=== PATIENT | male | born 1985 | race Caucasian/White ===

== ENCOUNTER 2018-12-16 15:54 | Emergency (ER) | payer BC, SELFPAY ==
[2018-12-16 15:57] VITALS: BP 162/102; PULSE 93; RESP 16; TEMP 36.6
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
[2018-12-16] MEDS: Ibuprofen 600 MG TAB PO (17:12)
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
--- NOTE | 2018-12-16 17:24 | DI.VRAD_ITS ---
EXAM: XR Right Clavicle, Complete EXAM DATE/TIME: 12/16/2018 4:13 PM CLINICAL HISTORY: 33 years old, male; Pain; Shoulder; Right TECHNIQUE: Imaging protocol: XR Right clavicle complete. Any number of views. COMPARISON: CR XR ribs RT w PA lat chest 12/16/2018 4:49 PM FINDINGS: Bones/joints: Normal. No fracture or dislocation. Soft tissues: Normal. IMPRESSION: No acute findings. Dictated and Authenticated by: Cyrus Slater MD. Ordering:TIAGO Ornelas MD
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
--- NOTE | 2018-12-16 17:27 | DI.VRAD_ITS ---
EXAM: XR Chest, 2 Views EXAM DATE/TIME: 12/16/2018 4:13 PM CLINICAL HISTORY: 33 years old, male; Pain; Other: Shoulder R; Other: Shoulder, pr refused rib imaging TECHNIQUE: Imaging protocol: XR of the chest, 2 views. COMPARISON: No relevant prior studies available. FINDINGS: Lungs: Unremarkable. No consolidation. Pleural space: Unremarkable. No pleural effusion. No pneumothorax. Heart/Mediastinum: Unremarkable. No cardiomegaly. Bones/joints: Unremarkable. IMPRESSION: No acute findings. Dictated and Authenticated by: Cyrus Slater MD. Ordering:TIAGO Ornelas MD
[2018-12-16 17:51] VITALS: BP 155/84; PULSE 87; RESP 18; TEMP 37.3; O2SAT 97
== END 2018-12-16 17:46 | disposition home or self-care (01) ==
PROVIDERS: Emergency Provider Physician Assistant
DX: S40.011A Contusion of right shoulder, initial encounter (principal); S20.211A Contusion of right front wall of thorax, initial encounter; S00.81XA Abrasion of other part of head, initial encounter; H57.02 Anisocoria; V17.5XXA Pedal cycle passenger injured in collision with fixed or stationary object in traffic accident, initial encounter
CPT/HCPCS: 99284; 70450; 71046; 72125; 73000; 73030